=== PATIENT | male | born 1990 | race Caucasian/White ===

== ENCOUNTER 2024-10-18 09:06 | Emergency (ER) | payer OTHER ==
[~2024-10-18] VITALS: Ht 170.2 cm; Wt 136.4 kg
[2024-10-18 09:09] VITALS: BP 149/57; PULSE 97; RESP 16; TEMP 97.6; O2SAT 97
[2024-10-18] MEDS: PROPARACAINE HCL 0.5% 15 ML OPHTHALMIC SOLUTION OU ONE (09:51)
[2024-10-18] MEDS: FLUORESCEIN SODIUM 1 MG STRIP OU ONE (09:52)
[2024-10-18] MEDS: OFLOXACIN 0.3% 5 ML OPHTHALMIC SOLUTION OU ONE (10:48)
== END 2024-10-18 10:51 | disposition home or self-care (01) ==
LOC: EMS 09:08
DX: T65.891A Toxic effect of other specified substances, accidental (unintentional), initial encounter (principal); Y92.89 Other specified places as the place of occurrence of the external cause
CPT/HCPCS: 82962; 99283